=== PATIENT | female | born 1990 | race Caucasian/White ===

== ENCOUNTER 2017-06-22 15:20 | Emergency (ER) | payer MEDICARE, OTHER ==
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
--- NOTE | 2017-06-22 16:12 | Diagnostic Imaging Report ---
[facility] [address] [facility] [address] Report Submission Date: Jun 22, 2017 4:11:04 PM CDT Patient Study Name: OTILIO VILLANUEVA Date: Jun 22, 2017 3:48:17 PM CDT Modality Type: CT\SR Gender: F Description: CT BRAIN W/O CONTRAST : 86 Institution: [facility] Physician: VIKRAM MOSS Computed tomography of the head without contrast History: Fall Findings: Transverse brain sections are obtained without contrast revealing normal-sized ventricles and sulci. Cavum septum pellucidum et vergae is noted. Jose white differentiation is intact. There is no intracranial hemorrhage, mass lesion, or fluid collection. The skull is intact. Visualized sinuses and mastoid air cells are clear. Impression: Normal. Electronically signed on Jun 22, 2017 4:11:04 PM CDT by: Etienne NEWMAN
[2017-06-22 17:45] VITALS: BP 102/61
== END 2017-06-22 16:34 | disposition home or self-care (01) ==
LOC: ED 15:20
DX: S06.0X9A Concussion with loss of consciousness of unspecified duration, initial encounter (principal); W19.XXXA Unspecified fall, initial encounter; Y93.9 Activity, unspecified; Y99.9 Unspecified external cause status
CPT/HCPCS: 70450; 99283

== ENCOUNTER 2018-06-04 18:15 | Emergency (ER) | payer MEDICARE, OTHER ==
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
--- NOTE | 2018-06-04 20:26 | Diagnostic Imaging Report ---
HECTOR RUSHING [facility] [address] [facility] [address] [address] Report Submission Date: Jun 04, 2018 7:59:32 PM CDT Patient Study Name: OTILIO VILLANUEVA Date: Jun 04, 2018 7:17:14 PM CDT Modality Type: DX Gender: F Description: UPPER EXTREMITY : 86 Institution: [facility] Physician: HECTOR RUSHING Right hand 3 views Clinical history: Trauma No visible fracture, dislocation or bone destruction. Impression: Normal right hand. Electronically signed on Jun 04, 2018 7:59:32 PM CDT by: Garrison NEWMAN
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
--- NOTE | 2018-06-04 20:28 | Diagnostic Imaging Report ---
HECTOR RUSHING [facility] [address] [facility] [address] [address] Report Submission Date: Jun 04, 2018 7:56:20 PM CDT Patient Study Name: OTILIO VILLANUEVA Date: Jun 04, 2018 7:14:43 PM CDT Modality Type: DX Gender: F Description: UPPER EXTREMITY : 86 Institution: [facility] Physician: HECTOR RUSHING Right forearm 2 views Clinical history: Trauma No visible fracture, dislocation or bone destruction. Impression: Normal right forearm Electronically signed on Jun 04, 2018 7:56:20 PM CDT by: Garrison NEWMAN
--- NOTE | 2018-06-04 20:28 | Diagnostic Imaging Report ---
HECTOR RUSHING [facility] [address] [facility] [address] [address] Report Submission Date: Jun 04, 2018 7:57:39 PM CDT Patient Study Name: OTILIO VILLANUEVA Date: Jun 04, 2018 7:12:07 PM CDT Modality Type: DX Gender: F Description: UPPER EXTREMITY : 86 Institution: [facility] Physician: HECTOR RUSHING Right humerus to include the right shoulder 2 views Clinical history: Trauma No visible fractures, dislocation or bone destruction. Impression: Normal right humerus and right shoulder. Electronically signed on Jun 04, 2018 7:57:39 PM CDT by: Garrison NEWMAN
[2018-06-04 21:15] VITALS: BP 110/72
== END 2018-06-04 20:40 | disposition home or self-care (01) ==
LOC: ED 18:15
DX: M25.551 Pain in right hip (principal); W19.XXXA Unspecified fall, initial encounter; Y92.410 Unspecified street and highway as the place of occurrence of the external cause; Y93.9 Activity, unspecified; Y99.9 Unspecified external cause status
CPT/HCPCS: 73060; 73090; 73130; 73502; J7030; 99284